=== PATIENT | female | born 1945 | race Caucasian/White ===

== ENCOUNTER → 2016-08-27 | Outpatient (CLI) | payer MEDICARE, BC ==
--- NOTE | 2016-08-27 22:29 | WWHP ---
DATE OF DICTATION: 08/27/2016 CHIEF COMPLAINT: The patient is here for her routine gynecologic exam. HISTORY OF PRESENT ILLNESS: This is a 71-year-old G3, P3 with an LMP of approximately 1991. She states it has been several years since her last pelvic exam. She has noticed a small lump in the right vulva which has been there for at least 2 years. She states it is about pea-size and is generally not painful but sometimes feels slightly irritated. Recently she also noticed a very small "yo" on her right nipple. She is otherwise without complaints and denies any postmenopausal bleeding. PAST MEDICAL HISTORY: 1. Type 2 diabetes. 2. Elevated cholesterol. 3. Chronic hypertension. 4. Arthritis. Dr. Matias is her primary care physician. MEDICATIONS: 1. Janumet 1 tablet daily. 2. Losartan 50 mg daily. 3. Simvastatin 40 mg daily. 4. Vitamin D supplement daily. 5. Glucosamine daily. 6. Multivitamin daily. 7. Probiotic daily. ALLERGIES: NO KNOWN DRUG ALLERGIES. PAST SURGICAL HISTORY: 1. Bilateral knee replacement in the past. 2. Foot surgery in the past. 3. Colonoscopy x3; the last one was in 2013. PAST OB HISTORY: Three vaginal deliveries. 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 She has no history of STDs. SOCIAL HISTORY: She quit smoking in her 20s. She has about 2 glasses of wine daily. She denies drug use. She has been since 1964 and is infrequently sexually active. She is retired. FAMILY HISTORY: Maternal aunt had breast cancer. Mother had ureter cancer. Father had rheumatoid arthritis and congestive heart failure. REVIEW OF SYSTEMS: She denies respiratory, cardiac or GI problems. She denies maltreatment or falling. : Occasional slight urinary leakage with coughing or sneezing, but this is not a major problem for her. PHYSICAL EXAM: Blood pressure 147/90. Height 5 feet 3 inches. Weight 173 pounds. Temperature 97.5, pulse 83. This is a well-developed, well-nourished white female who is alert and oriented x3, in no acute distress. HEENT is within normal limits. NECK: Supple without mass or thyromegaly. CHEST AND LUNGS: Clear to auscultation. HEART: Regular rate and rhythm. BREASTS: There is a 2 mm inclusion cyst of the right nipple which appears very benign. It is whitish in color. It is very smooth and regular and is nontender and non-inflamed. There are no breast masses. There is no nipple discharge. Axillary exam is negative for adenopathy. BACK: Negative for CVA tenderness. ABDOMEN: Soft, nontender, without palpable masses. PELVIC EXAM: External genitalia reveal mild atrophy. There is an 8 mm inclusion cyst in the anterior right labia majora which is smooth and mobile and benign-appearing. This is non-inflamed and nontender. There are no other external genitalia lesions. Cervix and vagina reveal mild atrophy without lesion. There is no evidence of prolapse. The uterus is midposition, nongravid size and nontender. There are no palpable adnexal masses or tenderness. Rectovaginal exam is negative for mass or tenderness and is negative for occult blood. EXTREMITIES: Nontender. IMPRESSION: A 71-year-old menopausal female with a benign-appearing inclusion cyst in the right labia majora and a very small cyst in the right nipple which also appears benign. PLAN: 1. Pap smear was performed. 2. Self breast examination was discussed. 3. Mammogram will be due after 11/13/16, and an order slip was given to the patient for this. 4. Osteoporosis prevention was discussed. She had a bone density test on 11/14/15 which was normal. I recommended repeating this in approximately 8 years. 5. We discussed her elevated blood pressure. I have recommended that she check her blood pressure at home on a regular basis and follow up with Dr. Matias for blood pressure elevations. 6. We discussed the benign nature of the inclusion cysts, and I have reassured the patient. She is to check these areas on a regular basis and let me know if they are changing. 7. She will return in one year.
== END | disposition home or self-care (01) ==
LOC: WWCWWP 11:15
PROVIDERS: ATTEND Obstetrics & Gynecology
DX: Z53.9 Procedure and treatment not carried out, unspecified reason (principal)

== ENCOUNTER → 2017-06-18 | Outpatient (CLI) | payer MEDICARE, BC ==
--- NOTE | 2017-06-19 14:06 | MM ---
Reason for exam: screening (asymptomatic). Last mammogram was performed 1 year and 7 months ago. History: Patient is postmenopausal. Family history of breast cancer in maternal aunt. Physical Findings: A clinical breast exam by your physician is recommended on an annual basis and results should be correlated with mammographic findings. MG 3D Screening Mammo W/Cad Bilateral CC and MLO view(s) were taken. Prior study comparison: November 14, 2015, bilateral MG 3d screening mammo w/cad. June 20, 2013, bilateral digital screening mammo w/CAD. There are scattered fibroglandular densities. Finding: There are typically benign diffuse/scattered calcifications in both breasts. No suspicious abnormality. No significant changes in finding since November 14, 2015 and June 20, 2013. ASSESSMENT: Benign, BI-RAD 2 RECOMMENDATION: Routine screening mammogram of both breasts in 1 year.
== END | disposition home or self-care (01) ==
LOC: RADMAMWWP 08:59
PROVIDERS: ATTEND Obstetrics & Gynecology
DX: Z12.31 Encounter for screening mammogram for malignant neoplasm of breast (principal)
CPT/HCPCS: 77063; 77067

== ENCOUNTER → 2018-10-25 | Outpatient (CLI) | payer MEDICARE, BC ==
--- NOTE | 2018-10-25 08:48 | BD ---
EXAMINATION TYPE: Axial Bone Density DATE OF EXAM: 10/25/2018 COMPARISON: 2016 CLINICAL HISTORY: Postmenopausal female. Osteoporosis screening. Height: 61 inches Weight: 168 pounds FRAX RISK QUESTIONS: Alcohol (3 or more units per day): no Family History (Parent hip fracture): no Glucocorticoids (More than 3mos): no (Ex: prednisone, prednisolone, methylprednisolone, dexamethasone, and hydrocortisone). History of Fracture in Adulthood: no Secondary Osteoporosis: 1. Type 1 Diabetes: no 2. Hyperthyroidism: no 3. Menopause before 45: no 4. Malnutrition: no 5. Chronic liver disease: no Rheumatoid Arthritis: no Current Tobacco Use: no RISK FACTORS HISTORY OF: Family History of Osteoporosis:yes, sister Active: yes Diet low in dairy products/other sources of calcium: no Postmenopausal woman: yes Take estrogen and/or progesterone medications: no Lost more than 2 inches in height since high school: unsure, states was about 63 inches at one time Frequent falls: no Poor Health: no Hyperparathyroidism: no Adrenal Insufficiency: no MEDICATIONS: Prednisone or other steroids: no Thyroid Medications: no Osteoporosis Medications: no Additional Medications: med for diabetes; blood pressure, cholesterol med Additional History: bilateral knee replacement; arthritis; type II diabetic EXAM MEASUREMENTS: Bone mineral densitometry was performed using the Kappa Prime System. Bone mineral density as measured about the Lumbar spine is: ----- L1-L4(G/cm2): 1.289 T Score Values are as follows: ----- L2: 0.1 ----- L3: 1.3 ----- L4: 1.5 ----- L1-L4: 0.9 Bone mineral density has: Decreased -4.6% since study of: 11/14/2015 Bone mineral density about the R hip (g/cm2): 1.037 Bone mineral density about the L hip (g/cm2): 1.025 T Score values are as follows: -----R Neck: 0.0 -----L Neck: -0.1 -----R Total: 0.3 -----L Total: 0.3 Bone mineral density has: Decreased -1.1% since study of: 11/14/2015 IMPRESSION: Normal (Values between +1 and -1 indicate normal bone mass). Consider repeating this study in 5 year s or sooner if there is some new clinical indication. NOTE: T-SCORE=SD OF THE YOUNG ADULT MEAN.
--- NOTE | 2018-10-25 11:24 | MM ---
Reason for exam: screening (asymptomatic). Last mammogram was performed 1 year and 4 months ago. History: Patient is postmenopausal. Family history of breast cancer in maternal aunt. Physical Findings: A clinical breast exam by your physician is recommended on an annual basis and results should be correlated with mammographic findings. MG 3D Screening Mammo W/Cad Bilateral CC and MLO view(s) were taken. Prior study comparison: June 18, 2017, bilateral MG 3d screening mammo w/cad. November 14, 2015, bilateral MG 3d screening mammo w/cad. There are scattered fibroglandular densities. Benign appearing bilateral calcifications. No suspicious abnormality. No significant changes when compared with prior studies. ASSESSMENT: Negative, BI-RAD 1 RECOMMENDATION: Routine screening mammogram of both breasts in 1 year.
== END | disposition home or self-care (01) ==
LOC: RADMAMWWP 07:18
PROVIDERS: ATTEND Internal Medicine
DX: Z12.31 Encounter for screening mammogram for malignant neoplasm of breast (principal); Z78.0 Asymptomatic menopausal state
CPT/HCPCS: 77063; 77067; 77080

== ENCOUNTER 2018-12-31 12:31 | Day surgery (SDC) | payer MEDICARE, BC ==
[2018-12-30 08:27] VITALS: BMI 30.5
[~2018-12-31 12:31] MED LIST: LACTATED RINGERS 1,000 ML IV SCH; LIDOCAINE 1% 20 ML VIAL (10MG/ML) FOR IV START INTRADERMA PRN
[2018-12-31 13:09] VITALS: RESP 16; TEMP 97.4
[2018-12-31 13:29] LABS: Glucose,Whole Blood 198 mg/dL (75-99)
[2018-12-31] MEDS ORDERED: LIDOCAINE 1% INJ 10MG/ML (20 ML MDV) ONE (13:43)
[2018-12-31] MEDS ORDERED: PROPOFOL 10 MG/ML 20 ML VIAL IV ONE (13:43)
--- NOTE | 2018-12-31 14:02 | P.PCN ---
Date of Procedure: 12/31/18 Procedure(s) Performed: Brief history: Patient is a pleasant 73-year-old white female scheduled for an elective upper endoscopy as well as colonoscopy as a part of evaluation of GERD and prior history of colon polyps Procedure performed: Esophagogastroduodenoscopy with biopsy Colonoscopy with snare polypectomy Preoperative diagnosis: GERD History of colon polyps [place]est[place]: [facility] [place] Procedure: After informed consent was obtained from the patient was brought into the endoscopy unit and IV sedation was administered by anesthesia under continuous monitoring. Initially upper endoscopy was done. The Olympus GF 160 video endoscope was inserted inserted into the mouth and esophagus intubated without any difficulty and was gradually advanced into the stomach and duodenum and carefully examined. The bulb and second part of the duodenum appeared normal. The scope was then withdrawn into the stomach adequately insufflated with air and upon careful examination the antrum had mild erosive gastritis and biopsies were done from this area. The body, cardia and fundus appeared normal. The scope was then withdrawn into the esophagus. The GE junction was located at 40 cm to the incisors. It appeared regular with 2 small superficial erosions consistent with LA grade a reflux esophagitis. Rest of the esophagus appeared normal. Patient tolerated the procedure well. At this time the patient continued to remain sedation. Initial digital rectal examination was normal. Olympus CF 160 video colonoscope was then inserted into the rectum and gradually advanced to the cecum without any difficulty. Careful examination was performed as the scope was gradually being withdrawn. The prep was excellent. The cecum, ascending colon, transverse colon, descending colon, sigmoid colon and rectum appeared normal. In the distal rectum there was a 5 mm sessile polyp that was removed by snare polypectomy. Scattered sigmoidal diverticulosis seen. Retroflexion was performed in the rectum and no lesions were noted. Patient tolerated the procedure well. Impression: 1. Upper endoscopy revealed mild antral erosive gastritis and LA grade A reflux esophagitis 2. Colonoscopy revealed a 5 mm distal sigmoid colon polyp status post snare polypectomy and scattered sigmoid diverticulosis Recommendations: Findings of this examination were discussed with the patient as well as her family. She was advised to follow with the biopsy results. She can have a repeat colonoscopy in 5 years from now. In regards to the reflux symptoms she can use [id number] H2 blockers as needed
[2018-12-31 14:25] VITALS: BP 145/66; PULSE 59
== END 2018-12-31 14:53 | disposition home or self-care (01) ==
LOC: ORWHC2ENDO 12:31
PROVIDERS: ATTEND Internal Medicine Gastroenterology
DX: Z12.11 Encounter for screening for malignant neoplasm of colon (principal); D12.5 Benign neoplasm of sigmoid colon; K29.50 Unspecified chronic gastritis without bleeding; K57.30 Diverticulosis of large intestine without perforation or abscess without bleeding; K21.0 Gastro-esophageal reflux disease with esophagitis; Z86.010 Personal history of colon polyps; I10 Essential (primary) hypertension; E78.5 Hyperlipidemia, unspecified; E11.9 Type 2 diabetes mellitus without complications; Z91.09 Other allergy status, other than to drugs and biological substances; Z79.84 Long term (current) use of oral hypoglycemic drugs; Z79.899 Other long term (current) drug therapy
CPT/HCPCS: 88305; 45385; 43239; J2001; J2704

== ENCOUNTER → 2020-01-31 | Outpatient (CLI) | payer MEDICARE, BC ==
[2020-01-31 11:16] VITALS: BP 154/94; PULSE 65; RESP 12; TEMP 98.1
--- NOTE | 2020-01-31 13:15 | P.HPOB ---
History of Present Illness H&P Date: 01/31/20 Chief Complaint: Pelvic, vaginal, and bladder discomfort for one week This is a 74-year-old with an LMP of 1991. She is complaining of pelvic, vaginal and bladder discomfort which started about 1 week ago. At first she thought she may have a urinary tract infection and saw her PCP who did a urinalysis and she was told it was negative for infection 5 days ago. She has some discomfort with urination and also feels a lot of bladder pressure. She has had 2 episodes of small amount of blood in the urine. She feels pressure, burning and itching in the vagina. She denies vaginal discharge or vaginal odor. She has not had any fever. She is sexually active and denies any new sexual partners. Her last pelvic exam was about 3-1/2 years ago. She denies any postmenopausal vaginal bleeding. Review of Systems Her weight has been stable. She denies fever. She denies respiratory or cardiac problems. GI: Occasional loose stool. Past Medical History Past Medical History: Diabetes Mellitus, Hyperlipidemia, Hypertension, Osteoarthritis (OA) Additional Past Medical History / Comment(s): Type 2 diabetes . degenerative disc. 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 History of Any Multi-Drug Resistant Organisms: None Reported Past Surgical History: Joint Replacement Additional Past Surgical History / Comment(s): breonna total knees,bunionectomy. Colonoscopy 2013. Past Anesthesia/Blood Transfusion Reactions: No Reported Reaction, Motion Sickness Past Psychological History: No Psychological Hx Reported Smoking Status: Never smoker Past Alcohol Use History: Daily (About 1 bottle of wine per week) Past Drug Use History: None Reported Additional History: She has been since 1964 and is infrequently sexually active. She is retired. - Past Family History Mother Family Medical History: Cancer Additional Family Medical History / Comment(s): Ureter cancer. Maternal aunt had breast cancer. Father Family Medical History: Congestive Heart Failure (CHF), Rheumatoid Arthritis (RA) Medications and Allergies Home Medications Medication Instructions Recorded Confirmed Type Glucosamine Sulfate 1 tab PO HS 10/31/15 01/31/20 History Losartan [Cozaar] 50 mg PO HS 10/31/15 12/31/18 History Multivitamin with Iron 1 tab PO HS 10/31/15 01/31/20 History [Multivitamins with Iron] Simvastatin [Zocor] 40 mg PO HS 10/31/15 12/31/18 History Glimepiride [Amaryl] 1 mg PO BID 05/27/18 01/31/20 History Nitrofurantoin Monohyd/M-Cryst 100 mg PO Q12HR 7 Days #14 cap 01/31/20 Rx [Macrobid] sitaGLIPtin PHOS/metFORMIN HCL 1 each PO 01/31/20 History [Janumet Xr 100-1,000 mg Tablet] Allergies Allergy/AdvReac Type Severity Reaction Status Date / Time adhesive tape Allergy Rash/Hives,"paper Verified 12/31/18 13:10 tape is ok" Exam Vital Signs Temp Pulse Resp BP Pulse Ox 01/31/20 11:07 98.1 F 65 12 154/94 97 Intake and Output 01/30/20 01/31/20 01/31/20 22:59 06:59 14:59 Other: Weight 80.286 kg Height 5 feet 2 inches, weight 177 pounds, BMI 32.4. This is a well-developed well-nourished white female who is alert and oriented times 3 in no acute distress. CHEST AND LUNGS: Clear to auscultation. HEART: Regular rate and rhythm. ABDOMEN: Soft, nontender, without palpable masses. PELVIC EXAM: Normal external genitalia with mild atrophy. Cervix and vagina appear normal mild atrophy. There is no unusual discharge. There is no evidence of prolapse. The uterus is midposition, nongravid size and nontender. There are no palpable adnexal masses. There is mild generalized tenderness of the pelvis RECTAL EXAM: Rectovaginal exam is negative for mass or tenderness and is negative for occult blood. EXTREMITIES: Nontender. IMPRESSION: 1. 74-year-old menopausal female with pelvic, vaginal, and bladder discomfort. 2. Symptoms include dysuria, urinary urgency, 2 episodes of hematuria, vaginal pressure, and vaginal pruritus. Differential diagnosis will include urinary tract infection, neil vaginitis, bacterial vaginosis, small postmenopausal uterine bleeding, interstitial cystitis, and GI pelvic discomfort. PLAN: 1. Pap smear was performed. 2. Urine will be obtained for UA and C&S. This is being done despite having a urinalysis done last week by her PCP because her urinary symptoms are si gnificant. 3. Affirm testing for neil, Gardnerella, and Trichomonas was obtained from the vagina. 4. Pelvic ultrasound was recommended and the order slip was given to the patient for this. This will help rule out uterine fibroid, ovarian mass and endometrial thickening. 5. Trial of Macrobid twice a day 7 days. The electronic prescription was sent to [facility] on [facility]. 6. The patient states she has an order slip for her mammogram through her PCP. 7. Consider referral to a urologist if symptoms persist or if hematuria persists. 8. I have recommended yearly well woman examinations.
[2020-01-31 19:13] LABS: Appearance,Urine Cloudy (Clear); Bacteria,Urine Occasional /hpf; Bilirubin,Urine Negative (Negative); Blood,Urine Large (Negative); Color,Urine Light Yellow; Glucose,Urine (UA) 1+ (Negative); Ketones,Urine Negative (Negative); Leukocyte Esterase,Urine Large (Negative); Nitrite,Urine Negative (Negative); PH, Urine 6.5 (5.0-8.0); Protein,Urine Trace (Negative); RBC,Urine 148 /hpf (0-5); Specific Gravity,Urine 1.013 (1.001-1.035); Squamous Epithelial Cell,Urine 2 /hpf (0-4); Urobilinogen,Urine <2.0 mg/dL (<2.0); WBC,Urine >182 /hpf (0-5)
[2020-02-01 04:40] LABS: Gardnerella Negative (Negative); Source Vagina; Trichomonas Negative (Negative)
--- NOTE | 2020-02-01 10:23 | P.PN ---
Progress Note - Text Progress Note Date: 02/01/20 OUTPATIENT FOLLOW-UP NOTE TEST(S)/RESULTS: Test results from 01/31/2020 include urinalysis which showed large white blood cells and RBCs. Affirm testing was negative for neil, Gardnerella, and Trichomonas. METHOD OF NOTIFICATION: The patient was notified by phone. PATIENT COMMENTS: The patient has started Macrobid and took her second pill this morning. She thinks she is noticing some improvement in her urinary symptoms. DIAGNOSIS: Cystitis UTI. DISCUSSION: She will still proceed with the pelvic ultrasound as ordered. The episodes of small blood noted after urinating probably was from the UTI, but we will still plan on checking the endometrial thickness. PLAN: Continue Macrobid as prescribed. Await urine culture and Pap smear.
== END | disposition home or self-care (01) ==
LOC: WWCWWP 10:49
PROVIDERS: ATTEND Obstetrics & Gynecology
DX: N95.2 Postmenopausal atrophic vaginitis (principal); R31.0 Gross hematuria; R10.2 Pelvic and perineal pain; R30.0 Dysuria; R39.15 Urgency of urination
CPT/HCPCS: 81001; 87086; 87480; 87510; 87660

== ENCOUNTER → 2020-02-15 | Outpatient (CLI) | payer MEDICARE, BC ==
--- NOTE | 2020-02-15 15:25 | US ---
EXAMINATION TYPE: US pelvis complete transvag DATE OF EXAM: 02/15/2020 COMPARISON: NONE CLINICAL HISTORY: R10.2 Pelvic pain. TECHNIQUE: Transvaginal (TV) and Transabdominal (TA) . Transabdominal sonographic images of the pel vis were acquired. Transvaginal sonographic images were medically necessary to better assess the fol lowing anatomy: Date of LMP: 20 + years postmenopausal patient EXAM MEASUREMENTS: Uterus: 5.9 x 4.4 x 5.2 cm Endometrial Stripe: 0.3 cm Right Ovary: 1.0 x 0.6 x 0.6 cm Left Ovary: obscured by overlying bowel 1. Uterus: heterogeneous, fibroid of the posterior uterine body measuring 2.3 x 2.2 x 2.4 2. Endometrium: wnl as seen, displaced by fibroid 3. Right Ovary: wnl 4. Left Ovary: obscured by overlying bowel 5. Bilateral Adnexa: wnl 6. Posterior cul-de-sac: wnl IMPRESSION: 1. 2.4 cm fibroid of the posterior uterine body. 2. No evidence of endometrial thickening. 3. Normal right ovary. Nonvisualization of the left ovary. 4. No free fluid.
== END | disposition home or self-care (01) ==
LOC: RADUSWWP 10:10
PROVIDERS: ATTEND Obstetrics & Gynecology
DX: D25.9 Leiomyoma of uterus, unspecified (principal)
CPT/HCPCS: 76830; 76856

== ENCOUNTER → 2020-03-19 | Outpatient (CLI) | payer MEDICARE, BC ==
--- NOTE | 2020-03-20 09:43 | MM ---
Reason for exam: screening (asymptomatic). Last mammogram was performed 1 year and 5 months ago. History: Patient is postmenopausal. Family history of breast cancer in maternal aunt. Physical Findings: A clinical breast exam by your physician is recommended on an annual basis and results should be correlated with mammographic findings. MG 3D Screening Mammo W/Cad Bilateral CC and MLO view(s) were taken. Prior study comparison: October 25, 2018, bilateral MG 3d screening mammo w/cad. June 18, 2017, bilateral MG 3d screening mammo w/cad. There are scattered fibroglandular densities. Stable benign calcifications. There is no discrete abnormality. No significant changes when compared with prior studies. ASSESSMENT: Benign, BI-RAD 2 RECOMMENDATION: Routine screening mammogram of both breasts in 1 year.
== END | disposition home or self-care (01) ==
LOC: RADMAMWWP 08:36
PROVIDERS: ATTEND Obstetrics & Gynecology
DX: Z12.31 Encounter for screening mammogram for malignant neoplasm of breast (principal)
CPT/HCPCS: 77063; 77067

== ENCOUNTER → 2021-03-05 | Outpatient (CLI) | payer MEDICARE, BC ==
--- NOTE | 2021-03-06 08:30 | CT ---
EXAMINATION TYPE: High resolution CT chest DATE OF EXAM: 03/05/2021 COMPARISON: Radiograph 02/20/2021 HISTORY: 75-year-old female R05, chronic cough TECHNIQUE: High-resolution scanning of the chest utilizing 1 mm slice thickness and 1 cm gap for HRCT protocol. IV contrast was not administered. Both prone and supine imaging was performed. CT DLP: 748.4 mGycm Automated exposure control for dose reduction was used. FINDINGS: The heart is upper limits of normal in size without pericardial effusion. Prominent epicardial fat pa d at the apex of the heart. Left main coronary artery calcifications are present. Borderline ectasia ascending aorta 3.5 cm. The metatarsals and branching anatomy. Scattered nonenlarged mediastinal lymph nodes measuring up to 6 mm. Allowing for HRCT technique, no t horacic lymphadenopathy is identified. Minimal right apical pleural parenchymal scarring. Slight bronchial wall thickening. Mild groundglass right middle lobe, posterior basilar right lower lobe, and lateral left lower lobe. Some volume loss and minimal bronchiolectasis inferior lingula. No honeycombing, thickening of the bronchovascular bundles, centrilobular nodules, or [place]-bud opa cities. HRCT technique limited for assessment of small pulmonary nodules. Visualized upper abdomen shows no gross abnormality. Bones: Mild endplate spondylosis throughout the thoracic spine. This seems to be a slight focal levoc onvex curvature along the upper third thoracic spine. IMPRESSION: 1. MILD BRONCHIAL WALL THICKENING CAN BE SEEN WITH BRONCHITIS OR CHRONIC ASTHMA. 2. SOME CHRONIC VOLUME LOSS AND MINIMAL BRONCHIOLECTASIS INFERIOR LINGULA PROBABLY OLD INFECTIOUS/INF LAMMATORY SEQUELA. 3. A FEW SUBTLE PATCHES OF GROUNDGLASS DENSITY AT THE LUNG BASES AND RIGHT MIDDLE LOBE. SMALL INFECTI OUS/INFLAMMATORY FOCI ARE SUGGESTED. CONSIDER A THREE-MONTH FOLLOW-UP EXAM TO REASSESS. FINDINGS MAY REPRESENT SUBTLE CHANGES OF AN INTERSTITIAL PNEUMONITIS.
== END | disposition home or self-care (01) ==
LOC: RADCTMAIN 15:27
PROVIDERS: ATTEND Internal Medicine Critical Care Medicine
DX: R05.3 Chronic cough (principal)
CPT/HCPCS: 71250

== ENCOUNTER 2021-04-09 12:05 | Day surgery (SDC) | payer MEDICARE, BC ==
[2021-04-08 08:50] VITALS: BMI 29.5
[~2021-04-09 12:05] MED LIST changes: +ALBUTEROL NEB (CONC) 2.5 MG/0.5 ML INHALATION ONE; +ATROPINE SULFATE 0.4 MG/ML 1 ML VIAL IM ONE; -LIDOCAINE 1% 20 ML VIAL (10MG/ML) FOR IV START INTRADERMA PRN; +LIDOCAINE 2% (PF) 20 MG/ML 5 ML VIAL INHALATION ONE; +LIDOCAINE VISCOUS 300 MG/15 ML CUP MUCOUS MEM ONE
[2021-04-09 12:40] VITALS: TEMP 97
[2021-04-09] MEDS ORDERED: KETAMINE 10 MG/ML 20 ML VIAL ONE (12:47)
[2021-04-09] MEDS ORDERED: .fentaNYL (PF) 50 MCG/ML 2 ML AMP ONE (12:47)
[2021-04-09] MEDS ORDERED: MIDAZOLAM 2 MG/2 ML VIAL ONE (12:47)
[2021-04-09] MEDS ORDERED: PROPOFOL 10 MG/ML 20 ML VIAL IV ONE (12:47)
[2021-04-09] MEDS ORDERED: LIDOCAINE 1% INJ 10MG/ML (20 ML MDV) ONE (12:47)
[2021-04-09 12:48] LABS: Glucose,Whole Blood 133 mg/dL (75-99)
[2021-04-09] MEDS ORDERED: LIDOCAINE 2% INJ 20 MG/ML INTRATRACH ONE (12:57)
[2021-04-09 13:13] VITALS: RESP 16
[2021-04-09 13:44] VITALS: BP 143/75; PULSE 85
[2021-04-09 16:59] LABS: Appearance,BF Cloudy; Color,BF Colorless; Nucleated Cells, Body Fluid 18 /uL; Nucleated Cells, Body Fluid 19 /uL; RBC, Body Fluid 18 /uL; RBC, Body Fluid 890 /uL
--- NOTE | 2021-04-09 22:04 | PCN ---
PROCEDURE NOTE PROCEDURE: Bronchoscopy, airway examination, therapeutic lavage, BAL. PREOPERATIVE DIAGNOSIS: Bronchiectasis and acute bronchitis with bronchospasm. POSTOPERATIVE DIAGNOSIS: Bronchiectasis and acute bronchitis with bronchospasm. DEPUTY DIRECTOR: Dr. Villagomez. PROCEDURE DESCRIPTION: There was informed consent and universal timeout. The patient's procedure took place in room #1 [facility]. Anesthesia provided general anesthesia to this patient. After the patient was adequately sedated and being fully monitored, the bronchoscope was inserted through the right nostril. It passed through the right nasopharynx into the oropharynx. The hypopharynx was identified and topicalized. The hypopharyngeal structures, including anterior commissure, true cords, false cords, arytenoids, piriform sinuses, right and left valleculae, and epiglottis all appeared relatively normal. The hypopharynx, though, was a bit crowded. There was no distinct mass or abnormality noted. After topicalization, the bronchoscope was pushed through the glottic opening into the trachea. Trachea appeared normal. Tracheal catrina was sharp. The right and left mainstem were topicalized. The right upper lobe and its 3 segments, the right middle lobe and its 2 segments, the right lower lobe and its 5 segments, the left upper lobe and its 2 segments, the lingula and its 2 segments and the left lower lobe and its 4 segments all had similar findings of diffuse airway erythema and hyperemia. There was mucosal friability. There was vascular engorgement. The mucosa bled easily. There was no mass or lesion or tumor noted. The bronchoscope was first wedged into the lingula. We did a BAL in the lingula. About 25 to 30 mL of fluid was recovered. Next the bronchoscope was wedged into the right middle lobe. We did a BAL in that area as well. The patient tolerated the procedure well. Another 30 mL of fluid was recovered. The fluid will be sent for analysis. There was no immediate complication. The bronchoscope was withdrawn. I did have a chance to speak to the patient's and gave him some preliminary findings. The patient will follow with me in the office. No immediate complications were observed. MMODL / IJN: [id number] /
== END 2021-04-09 13:50 | disposition home or self-care (01) ==
LOC: ORWHC2ENDO 12:05
PROVIDERS: ATTEND Internal Medicine Critical Care Medicine
DX: J47.9 Bronchiectasis, uncomplicated (principal); J20.9 Acute bronchitis, unspecified; J98.01 Acute bronchospasm; Z86.16 Personal history of COVID-19; I10 Essential (primary) hypertension; E11.9 Type 2 diabetes mellitus without complications; E78.5 Hyperlipidemia, unspecified; Z98.51 Tubal ligation status; Z96.653 Presence of artificial knee joint, bilateral; Z98.890 Other specified postprocedural states; K63.89 Other specified diseases of intestine; Z83.3 Family history of diabetes mellitus; Z82.61 Family history of arthritis; Z80.59 Family history of malignant neoplasm of other urinary tract organ; Z79.899 Other long term (current) drug therapy; Z79.84 Long term (current) use of oral hypoglycemic drugs; Z79.51 Long term (current) use of inhaled steroids
CPT/HCPCS: 87798 ×3; 87496; 87498; 87529; 88108; 88305; 89050; 87252; 87502; 87634; 87070; 87205; 87116; 87102; 87206; 31624; J2001 ×2; J2250; J3010; J2704

== ENCOUNTER → 2021-10-01 | Outpatient (CLI) | payer MEDICARE ==
--- NOTE | 2021-10-01 23:38 | CT ---
EXAMINATION TYPE: CT sinus wo con DATE OF EXAM: 10/01/2021 COMPARISON: None available HISTORY: chronic sinusitis/ mucus drainage CT DLP: 654.40 mGycm. Automated Exposure Control for Dose Reduction was Utilized. TECHNIQUE: CT scan of the sinuses is performed without contrast, axial images are obtained, coronal r eformatted images are also reviewed. FINDINGS: Minimal deviation of the bony nasal septum. Paradoxical left middle turbinate with left middle turbin ate zeeshan bullosa. Grossly unremarkable inferior turbinates. No significant mucosal thickening of th e nasal fossa bilaterally. Patent infundibulum and ostiomeatal complex bilaterally. Minimal mucosal thickening of the maxillary sinuses. Mucosal thickening and mild expansion of the left posterior ethmoid air cells suggestive of small mucocele. Mild mucosal thickening of the right sphenoid sinus compartment. Unremarkable frontal sinus. Patent s phenoethmoidal recesses. Clear mastoid air cells. Degenerative changes of the atlantoodontoid articulation. Grossly unremarkable TMJs. Unremarkable orb its. Volume loss changes of the visualized portion of the brain. IMPRESSION: Mucosal thickening of the maxillary sinuses, right sphenoid sinus compartment and left posterior ethm oid air cells as described above, suggestive of mild chronic sinusitis. Other findings as described a jenni.
== END | disposition home or self-care (01) ==
LOC: RADCTMAIN 15:30
PROVIDERS: ATTEND Internal Medicine Critical Care Medicine
DX: J32.9 Chronic sinusitis, unspecified (principal)
CPT/HCPCS: 70486

== ENCOUNTER → 2022-03-11 | Outpatient (CLI) | payer MEDICARE ==
[2022-03-11 12:51] VITALS: BP 172/99; PULSE 72; RESP 17; TEMP 97.8
--- NOTE | 2022-03-11 13:49 | P.HPOB ---
History of Present Illness H&P Date: 03/11/22 Chief Complaint: The patient is here for her routine gynecologic exam and ma mmogram. This is a 76-year-old with an LMP of 1991. The patient is without gynecologic complaints and denies any postmenopausal bleeding. Review of Systems She has lost about 8 pounds over the past 2 years. She denies respiratory, cardiac, or GI problems. : She denies dysuria or urinary urgency. Past Medical History Past Medical History: Diabetes Mellitus, Hyperlipidemia, Hypertension, Osteoarthritis (OA) Additional Past Medical History / Comment(s): Type 2 diabetes, degenerative disc disease. 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 History of Any Multi-Drug Resistant Organisms: None Reported Past Surgical History: Joint Replacement Additional Past Surgical History / Comment(s): Osiel. total knees, bunionectomy. Colonoscopy 2013. Past Anesthesia/Blood Transfusion Reactions: No Reported Reaction, Motion Sickness Past Psychological History: No Psychological Hx Reported Smoking Status: Never smoker Past Alcohol Use History: Occasional (4-6 per week) Past Drug Use History: None Reported Additional History: She has been since 1964. She is retired. - Past Family History Mother Family Medical History: Cancer Additional Family Medical History / Comment(s): Ureter cancer. Maternal aunt had breast cancer. Father Family Medical History: Congestive Heart Failure (CHF), Rheumatoid Arthritis (RA) Medications and Allergies Home Medications Medication Instructions Recorded Confirmed Type Losartan [Cozaar] 25 mg PO DAILY 10/31/15 03/11/22 History Multivitamin with Iron 1 tab PO DAILY 10/31/15 03/11/22 History [Multivitamins with Iron] Simvastatin [Zocor] 40 mg PO HS 10/31/15 03/11/22 History Glimepiride [Amaryl] 2 mg PO HS 05/27/18 03/11/22 History sitaGLIPtin PHOS/metFORMIN HCL 1 each PO DAILY 01/31/20 03/11/22 History [Janumet Xr 100-1,000 mg Tablet] Pioglitazone [Actos] 15 mg PO DAILY 04/08/21 03/11/22 History Esomeprazole Magnesium [NexIUM] 40 mg PO DAILY 03/11/22 03/11/22 History Allergies Allergy/AdvReac Type Severity Reaction Status Date / Time adhesive tape Allergy Rash/Hives,"paper Verified 03/11/22 12:43 tape is ok" Exam Vital Signs Temp Pulse Resp BP Pulse Ox 03/11/22 12:46 97.8 F 72 17 172/99 99 Intake and Output 03/10/22 03/11/22 03/11/22 22:59 06:59 14:59 Other: Weight 76.657 kg Height 5 foot 1 inch, weight 169 pounds, BMI 31.9. This is a well-developed well-nourished white female who is alert and oriented times 3 in no acute distress. HEENT: Within normal limits. NECK: Supple without mass or thyromegaly. CHEST AND LUNGS: Clear to auscultation. HEART: Regular rate and rhythm. BREASTS: Are without mass or discharge. AXILLARY EXAM: Negative for adenopathy. BACK: Negative for CVA tenderness. ABDOMEN: Soft, nontender, without palpable masses. PELVIC EXAM: Normal external genitalia with mild atrophy. Cervix and vagina appear normal with mild atrophy. There is no unusual discharge. There is no evidence of prolapse. The uterus is midposition, nongravid size. There is mild mid pelvic tenderness. There are no palpable adnexal masses or lateral tenderness. RECTAL EXAM: Rectovaginal exam is negative for mass or tenderness and is negative for occult blood. EXTREMITIES: Nontender. IMPRESSION: 1. 76-year-old menopausal female with mid pelvic tenderness on exam today. Differential diagnosis will include cystitis, intestinal gas, and less likely ovarian abnormality. 2. Elevated blood pressure with history of chronic hypertension. PLAN: 1. Pap smear was performed. If this one is negative, we will have 3 negative Pap smears within the last 10 years and we will plan on discontinuing Pap smears. 2. Self breast awareness was discussed with the patient. We have also discussed symptoms associated with inflammatory breast cancer. 3. Screening mammogram will be done today. 4. I have recommended pelvic ultrasound. The order slip was given to the patient for this. 5. Osteoporosis prevention was discussed. I have stressed the importance of adequate calcium, vitamin D and regular exercise. Recommended amounts of calcium and vitamin D were also discussed. We will plan on repeating bone density testing next year. She had a normal bone density test in 2016. 6. I have recommended that she check her own blood pressures at home on a regular basis. She was instructed to follow up with her PCP for blood pressure elevations. 7. Because of the pelvic tenderness we will get a urine specimen from her for a urinalysis and culture. 8. The patient was advised to return in 1-2 years for her well woman examination and as needed.
[2022-03-11 23:43] LABS: Appearance,Urine Clear (Clear); Bilirubin,Urine Negative (Negative); Blood,Urine Negative (Negative); Color,Urine Yellow (Yellow); Ketones,Urine Negative (Negative); Nitrite,Urine Negative (Negative); PH, Urine 5.5 (5.0-8.0); Specific Gravity,Urine 1.008 (1.001-1.030); Urobilinogen,Urine 0.2 (0.2,1.0)
[2022-03-12 00:30] LABS: Bacteria,Urine None Seen /HPF (None Seen); Mucus,Urine Present /LPF (None Seen)
--- NOTE | 2022-03-12 08:04 | MM ---
Reason for Exam: Screening (asymptomatic). Last mammogram was performed 2 year(s) and 0 month(s) ago. Patient History: Menarche at age 13. First Full-Term at age 20. Postmenopausal. Maternal aunt had breast cancer. Risk Values: Justyna 5 year model risk: 1.3%. NCI Lifetime model risk: 2.8%. Prior Study Comparison: 06/18/2017 Bilateral Screening Mammogram, [facility]. 10/25/2018 Bilateral Screening Mammogram, [facility]. 03/19/2020 Bilateral Screening Mammogram, [facility]. Tissue Density: There are scattered fibroglandular densities. Findings: Analyzed By CAD. There is no suspicious group of microcalcifications or new suspicious mass in either breast. Overall Assessment: Negative, BI-RAD 1 Management: Screening Mammogram of both breasts in 1 year. A clinical breast exam by your physician is recommended on an annual basis and results should be correlated with mammographic findings. [facility] will attempt to contact patient to return for supplemental views and ultrasound if indicated. Electronically signed and approved by: Nasir Joya DO
--- NOTE | 2022-03-12 12:47 | P.PN ---
Progress Note - Text Progress Note Date: 03/12/22 OUTPATIENT FOLLOW-UP NOTE TEST(S)/RESULTS: Urinalysis from 03/11/2022 shows moderate leukocyte esterase. METHOD OF NOTIFICATION: The patient was notified by phone. PATIENT COMMENTS: The patient states she has been having some urinary frequency. DIAGNOSIS: Cystitis UTI. DISCUSSION: Because of the pelvic tenderness we will still have her do the pelvic ultrasound which has been scheduled. She will be treated with Macrobid twice a day 7 days. The urine culture is still pending. The electronic prescription has been sent to [facility] [address]. PLAN: As above.
== END | disposition home or self-care (01) ==
LOC: WWCWWP 12:35
PROVIDERS: ATTEND Obstetrics & Gynecology
DX: Z12.31 Encounter for screening mammogram for malignant neoplasm of breast (principal)
CPT/HCPCS: 77063; 77067; 81001; 87086

== ENCOUNTER → 2022-03-24 | Outpatient (CLI) | payer MEDICARE ==
--- NOTE | 2022-03-24 12:09 | US ---
EXAMINATION TYPE: US pelvis complete transvag DATE OF EXAM: 03/24/2022 COMPARISON: Pelvic ultrasound February 15, 2020 CLINICAL HISTORY: R68.89 ABN PELVIC EXAM. Pelvic tenderness. . TECHNIQUE: Transvaginal (TV) and Transabdominal (TA) . Transabdominal sonographic images of the pel vis were acquired. Transvaginal sonographic images were medically necessary to better assess the fol lowing anatomy: ovaries and endometrium. Date of LMP: 20 + years ago EXAM MEASUREMENTS: Uterus: Measurements differ from TA to TV. TA: 8.0 x 6.3 x 3.6 cm TV: 6.3 x 5.4 x 3.7 cm Endometrial Stripe: 0.41 cm Right Ovary: Not seen Left Ovary: Not seen 1. Uterus: Anteverted Appears heterogeneous. Hyperechoic calcification seen toward the right: 0.9 x 0.6 x 0.7 cm. Hypoechoic area seen posterior uterus: 2.5 x 2.7 x 2.2 cm. Subcentimeter anechoic area in cervix. 2. Endometrium: Not well seen, measured at 0.41 cm. 3. Right Ovary: Not seen 4. Left Ovary: Not seen 5. Bilateral Adnexa: Appear wnl 6. Posterior cul-de-sac: Appears wnl Markedly heterogeneous uterus with areas of loculation and calcification suggesting scattered fibroid s is redemonstrated. Distinct endometrial stripe not identified. Incidental 5 mm nabothian cyst in th e cervix. No free fluid. Neither ovary clearly seen. No suspicious adnexal masses. IMPRESSION: Calcified fibroid uterus is felt present.
--- NOTE | 2022-03-25 14:05 | P.PN ---
Progress Note - Text Progress Note Date: 03/25/22 OUTPATIENT FOLLOW-UP NOTE TEST(S)/RESULTS: Test results from 03/11/2022 include negative Pap smear and benign mammogram. Pelvic ultrasound done on 03/24/2022 showed some small uterine fibroids and was otherwise unremarkable. There were no adnexal masses noted. METHOD OF NOTIFICATION: The patient was notified by phone. PATIENT COMMENTS: She has completed the antibiotics that were prescribed. She denies any urinary symptoms at this time. DIAGNOSIS: Negative Pap smear and benign mammogram. Small uterine fibroids, otherwise unremarkable pelvic ultrasound. DISCUSSION: She was instructed to call her PCP if she develops urinary symptoms. Since we have 3 negative Pap smears in the last 10 years, Pap smears will be discontinued. PLAN: She was advised to return in one year for her annual well woman exam.
== END | disposition home or self-care (01) ==
LOC: RADUSWWP 08:17
PROVIDERS: ATTEND Obstetrics & Gynecology
DX: D25.9 Leiomyoma of uterus, unspecified (principal); R68.89 Other general symptoms and signs
CPT/HCPCS: 76830; 76856

== ENCOUNTER → 2023-08-14 | Outpatient (CLI) | payer MEDICARE ==
[2023-08-14 16:26] LABS: Basophils # (A) 0.04 X 10*3/uL (0.00-0.10); Basophils % (A) 0.6 %; Eosinophils # (A) 0.22 X 10*3/uL (0.04-0.35); Eosinophils % (A) 3.5 %; HCT 39.4 % (37.2-46.3); HGB 12.8 g/dL (12.0-15.0); Lymphocytes # (A) 1.44 X 10*3/uL (0.90-5.00); MCH 29.3 pg (27.0-32.0); MCHC 32.5 g/dL (32.0-37.0); MCV 90.2 FL (80.0-97.0); Mean Platelet Volume 11.2 FL (9.5-12.2); Monocytes # (A) 0.55 X 10*3/uL (0.20-1.00); Monocytes % (A) 8.8 %; NRBC Per 100 WBC 0 X 10*3/uL (0.00-0.01); Neutrophils # (A) 3.99 X 10*3/uL (1.80-7.70); Neutrophils % (A) 63.9 %; Platelet Count 191 X 10*3/uL (140-440); RBC 4.37 X 10*6/uL (4.10-5.20); WBC 6.25 X 10*3/uL (4.50-10.00)
[2023-08-14 16:51] LABS: ALT 17 U/L (8-44); AST 23 U/L (13-35); Albumin 4.4 g/dL (3.8-4.9); Albumin/Globulin Ratio 1.76 Ratio (1.60-3.17); Alkaline Phosphatase 72 U/L (41-126); BUN/Creat Ratio 12.38 Ratio (12.00-20.00); Blood Urea Nitrogen 9.9 mg/dL (9.0-27.0); Calcium 9.7 mg/dL (8.7-10.3); Chloride 109 mmol/L (96-109); Chol/HDL Ratio 2.32 Ratio; Globulin 2.5 g/dL (1.6-3.3); Glucose 146 mg/dL (70-110); LDL Cholesterol,Calculated 91.6 mg/dL (0.0-131.0); Potassium 4.7 mmol/L (3.5-5.5); Sodium 143 mmol/L (135-145); Total Bilirubin 0.5 mg/dL (0.3-1.2); Total Protein 6.9 g/dL (6.2-8.2); VLDL Calculation 17.68 mg/dL (5.00-40.00)
== END | disposition home or self-care (01) ==
LOC: LABWHC1 08:03
PROVIDERS: ATTEND Internal Medicine Geriatric Medicine
DX: E11.9 Type 2 diabetes mellitus without complications (principal); D64.9 Anemia, unspecified; E78.2 Mixed hyperlipidemia
CPT/HCPCS: 36415; 80053; 80061; 82043; 82570; 83036; 84443; 85025

== ENCOUNTER → 2023-08-17 | Outpatient (CLI) | payer MEDICARE ==
--- NOTE | 2023-08-18 10:30 | BD ---
EXAMINATION TYPE: Axial Bone Density DATE OF EXAM: 08/17/2023 CLINICAL HISTORY: 78 years old Female. ICD-10 CODE: M81.0 AGE RELATED OSTEOPOROSIS Height: 62 Weight: 168 FRAX RISK QUESTIONS: Alcohol (3 or more units per day): no Family History (Parent hip fracture): no Glucocorticoids (More than 3mos): no (Ex: prednisone, prednisolone, methylprednisolone, dexamethasone, and hydrocortisone). History of Fracture in Adulthood: no Secondary Osteoporosis: 1. Type 1 Diabetes: no 2. Hyperthyroidism: no 3. Menopause before 45: yes 4. Malnutrition: no 5. Chronic liver disease: no Rheumatoid Arthritis: no Current Tobacco Use: no RISK FACTORS HISTORY OF: Surgery to Spine/Hip(right/left)/Wrist (right/left): no EXAM MEASUREMENTS: Bone mineral densitometry was performed using the [employer] System. Bone mineral density as measured about the Lumbar spine is: ----- L1-L4(G/cm2): 1.314 T Score Values are as follows: ----- L1: 0.3 ----- L2: 0.0 ----- L3: 1.7 ----- L4: 2.3 ----- L1-L4: 1.1 Z Score Values are as follows: ----- L1: 1.7 ----- L2: 1.4 ----- L3: 3.1 ----- L4: 3.7 ----- L1-L4: 2.5 Bone mineral density has: increased 1.9 % since study of: 10.25.2018 Bone mineral density about the R hip (g/cm2): 0.962 Bone mineral density about the L hip (g/cm2): 1.030 T Score values are as follows: -----R Neck: -0.5 -----L Neck: -0.1 -----R Total: -0.4 -----L Total: 0.2 Z Score values are as follows: -----R Neck: 1.3 -----L Neck: 1.7 -----R Total: 1.2 -----L Total: 1.8 Bone mineral density has: decreased -4.4 % since study of: 7.1.2019 FRAX%s: The graph provided illustrates a 8.7% chance for a major osteoporotic fx and a 1.1% chance fo r the hips probability for fx in 10 years time. IMPRESSION: Normal (Values between +1 and -1 indicate normal bone mass). Consider repeating this study in 5 year s or sooner if there is some new clinical indication. NOTE: T-SCORE=SD OF THE YOUNG ADULT MEAN.
--- NOTE | 2023-08-19 13:44 | MM ---
Reason for Exam: Screening (asymptomatic). Last mammogram was performed 1 year(s) and 5 month(s) ago. Patient History: Menarche at age 13. First Full-Term at age 20. Postmenopausal. Maternal aunt had breast cancer. Risk Values: Justyna 5 year model risk: 1.3%. NCI Lifetime model risk: 2.4%. Prior Study Comparison: 10/25/2018 Bilateral Screening Mammogram, [facility]. 03/19/2020 Bilateral Screening Mammogram, [facility]. 03/11/2022 Bilateral MG 3D screening mammo w/cad, [facility]. Tissue Density: There are scattered areas of fibroglandular density. Findings: Analyzed By CAD. There is no suspicious group of microcalcifications or new suspicious mass in either breast. Overall Assessment: Benign, BI-RAD 2 Management: Screening Mammogram of both breasts in 1 year. . Patient should continue monthly self-breast exams. A clinical breast exam by your physician is recommended on an annual basis. This exam should not preclude additional follow-up of suspicious palpable abnormalities. Note on Justyna scores and lifetime risk: 1. A Justyna score greater than 3% is considered moderate risk. If this is the case, consider specialist referral to assess eligibility for a risk reducing agent. 2. If overall lifetime risk for the development of breast cancer is 20% or higher, the patient may qualify for future screening with alternating mammogram and breast MRI. Electronically signed and approved by: Trung Nichols M.D. Radiologis
== END | disposition home or self-care (01) ==
LOC: RADMAMWWP 15:03
PROVIDERS: ATTEND Internal Medicine Geriatric Medicine
DX: Z12.31 Encounter for screening mammogram for malignant neoplasm of breast (principal); M81.0 Age-related osteoporosis without current pathological fracture; Z80.3 Family history of malignant neoplasm of breast; Z78.0 Asymptomatic menopausal state
CPT/HCPCS: 77063; 77067; 77080